=== PATIENT | female | born 1985 | race Caucasian/White ===

== ENCOUNTER 2016-10-20 17:29 | Emergency (ER) | payer MEDICAID ==
[~2016-10-20] VITALS: Ht 180.3 cm; Wt 65.8 kg
[~2016-10-20 17:29] MED LIST: OXYCONTIN10 MG PO
[2016-10-20 17:33] VITALS: BP 108/74
--- NOTE | 2016-10-20 17:33 | NUR ---
Patient w/c placed in bed 7.
--- NOTE | 2016-10-20 17:38 | NUR ---
31/F bib ex-boyfriend and was w/c assisted to bed 7. Pt brought in for evaluation of head injury to left side of head. Pt was found covered in blood. Per ex-boyfriend, pt has hx of ETOH abuse. Ex-boyfriend states she called him, she is currently living with him at this time and she asked him to bring alcohol. When he arrived he found her on the ground and there was blood on the floors. He also states there was vomit near the fireplace. Unwitnessed fall, unknown LOC. Patient is awake and alert, slurred speech, cooperative at this time. patient admits to drinking half a pint of alcohol. Fall happened approximately an hour ago prior to arrival. Pt is withdrawn and unaware about her condition at this time. There is no active bleeding at this time. Pt placed in bed 7 to try and clean up the blood. Pt is cooperative at this time.
--- NOTE | 2016-10-20 18:10 | NUR ---
Patient being evaluated by physician at bedside.
[2016-10-20] MEDS ORDERED: LIDOCAINE 1% ED 50 ML ONE (18:20)
--- NOTE | 2016-10-20 18:24 | NUR ---
1cm laceration to left bahai. Laceration tray set up at bedside.
--- NOTE | 2016-10-20 18:46 | NUR ---
Dr. Wood at bedside for laceration repair.
--- NOTE | 2016-10-20 18:57 | NUR ---
Pt provided a UA for urine . Pt is agitated and upset. She wants to leave and states she want to sign out AMA. Dr. Wood made aware.
[2016-10-20] MEDS ORDERED: BACITRACIN OINT 500 UNITS/GM PKT TP ONE (19:00)
--- NOTE | 2016-10-20 19:12 | NUR ---
CT made aware of patient's negative.
--- NOTE | 2016-10-20 19:12 | NUR ---
Pt report given to Antionette BARRY. Transfer of care at this time.
--- NOTE | 2016-10-20 19:14 | NUR ---
Patient going to CT via [facility].
--- NOTE | 2016-10-20 19:32 | NUR ---
Patient back from CT via [facility].
--- NOTE | 2016-10-20 19:33 | NUR ---
PT IN BED REQUESTING TO SIGN AMA. KATY MARSHALL NOTIFIED.
[2016-10-20 19:43] VITALS: BP 98/71
--- NOTE | 2016-10-20 19:43 | NUR ---
Patient does not wish to proceed with medical care recommended by DR LAINEZ. Patient given information related to possible complications, up to and including , which could occur as a result of leaving hospital at this time. Patient verbalizes understanding of risks involved leaving against medical advice. Patient has signed AMA form.
== END 2016-10-20 19:33 | disposition left against medical advice (07) ==
LOC: MED 17:37
DX: S01.81XA Laceration without foreign body of other part of head, initial encounter (principal); F10.10 Alcohol abuse, uncomplicated; W10.9XXA Fall (on) (from) unspecified stairs and steps, initial encounter; Y93.89 Activity, other specified; Y92.89 Other specified places as the place of occurrence of the external cause; Y99.8 Other external cause status
CPT/HCPCS: 12013; 70450; 72125; 81025; 99284; J2001